=== PATIENT | male | born 1990 ===

== ENCOUNTER → 2019-07-04 09:27 | Outpatient (CLI) | payer MEDICAID, SELFPAY ==
--- NOTE | ~2019-07-04 | CT_ITS ---
EXAMINATION: CT sinus wo con DATE: 07/04/2019 09:40 INDICATION: Chronic sinus congestion TECHNIQUE: Computed tomography (CT) of the paranasal sinuses was performed without contrast. Iterativ e reconstruction technique was employed. Exam dose: 263.20 mGy-cm total exam DLP. COMPARISON: None FINDINGS: There is prominent rightward deviation of the nasal septum. There is prominent asymmetric s oft tissue swelling of the left middle and inferior nasal turbinates. The ostiomeatal units are patent. The mastoid air cells are normally developed and aerated bilaterally. Middle and inner ear apparatus appear normal bilaterally. There is minimal development of the right frontal sinus. The paranasal sinuses are otherwise normally developed and aerated. There is minimal soft tissue thickening at the floor of the right maxillary s inus. IMPRESSION: Minimal soft tissue thickening at the floor of the right maxillary sinus Prominent rightward deviation of nasal septum Prominent soft tissue swelling of the left nasal turbinates Reviewed, dictated and finalized at [facility]. Reviewed, dictated and finalized at [facility]. ANIC GENERAL OPERATIONAL TEST
== END ==
DX: R09.81 Nasal congestion (principal)
CPT/HCPCS: 70486